=== PATIENT | female | born 1975 | race Caucasian/White ===

== ENCOUNTER 2024-08-25 16:29 | Emergency (ER) | payer OTHER, SELFPAY ==
--- OUTSIDE RECORDS SUMMARY | 2024-08-25 16:36 | XMS_ITS | Referral Summary ---
Author Organization [facility] Address [address] [place] [address] Care Team Providers Care Parquet Floor Layer'S Helper Name Role Phone Kaycee Suresh MD Primary Care Provider Allergies No known active allergies Medications ESTARYLLA 0.25-35 mg-mcg per tablet 09/28/2017 Active fenofibrate (TRIGLIDE) 160 mg tablet TK 1 T PO QD AT DINNER 0 12/07/2017 Active lisinopril (PRINIVIL,ZESTRI L) 10 mg tablet TK 1 T PO QD 3 12/04/2017 Active traZODone (DESYREL) 50 mg tablet TK 1 T PO B BED 0 12/07/2017 Active venlafaxine (EFFEXOR) 100 mg tablet 3 11/29/2017 Active ergocalciferol (VITAMIN D) 50,000 unit capsule TK 1 C PO Q WK 0 10/27/2017 Active buPROPion SR (WELLBUTRIN SR) 150 mg 12 hr tablet Take 1 tablet (150 mg total) by mouth 2 (two) times a day Active Active Problems Problem Noted Date Diagnosed Date Encounter for screening colonoscopy 03/26/2023 Diastasis recti 12/28/2017 Assessment & Plan (12/28/2017 9:35 AM CDT): Asymptomatic. Patient was reassured this is not a hernia. No surgical intervention desired by the patient for this cosmetic problem. Class 1 obesity without seri ous comorbidity with body mass index (BMI) of 33.0 to 33.9 in adult 12/28/2017 Assessment & Plan (12/28/2017 9:36 AM CDT): Obesity is newly identified. Discussed the patient's BMI. The BMI is above average. patient would like referral to communication lecturer. . General weight loss/lifestyle modification strategies discussed (elicit support from others; identify saboteurs; non-food rewards, etc). referral for communication lecturer sent Social History Tobacco Use Types Packs/Day Years Used Date Smoking Tobacco: Never Smokeless Tobacco: Never Alcohol Use Standard Drinks/Week Comments No 0 (1 standard drink = 0.6 oz pur e alcohol) AUDIT-C Answer Date Recorded Q1: How often do you have a drink containing alc ohol? Monthly or less 10/06/2023 Average Number of Drinks Not on file 024 Q3: How often do you have si x or more drinks on one occasion? Less than monthly 10/06/2023 Personal Safety Answer Date Recorded Have you ever been in or are you currently in a harmful physical or emotional relationship or is someone making you feel afraid or unsafe? Denies 10/07/2023 Comments No Sex and Gender Information Value Date Recorded Sex Assigned at Not on file Legal Sex Female 2:35 AM NOISE TESTER Gender Identity Not on file Sexual Orientation Not on file Last Filed Vital Signs Vital Sign Reading Time Taken Comments Blood Pressure 138/75 10/07/2023 10:42 AM CDT Pulse 66 10/07/2023 10:42 AM CDT Temperature 36.7 C (98 F) 10/07/2023 10:42 AM CDT Respiratory Rate 18 10/07/2023 10:42 AM CDT Oxygen Saturation 100% 10/07/2023 10:42 AM CDT Inhaled Oxygen Concentration - - Weight 108.9 kg (240 lb) 10/07/2023 8:51 AM CDT Height 170.2 cm (5' 7) 10/07/2023 8:51 AM CDT Body Mass Index 37.59 10/07/2023 8:51 AM CDT Plan of Treatment Not on file Procedures Procedure Name Priority Date/Time Associated Diagnosis Comments SCREENING MAMMOGRAM BILATERAL W SHAYNE Schedule Routine, Read Routine (OP Routine) 12/31/2023 9:39 AM CDT Encounter for other screening for malignant neoplasm of breast COLONOSCOPY 10/07/2023 8:48 AM CDT from Last 3 Months or Most Recently Relevant to Health Maintenance Results * Screening Mammogram Bilateral W Shayne (12/31/2023 9:39 AM CDT) Anatomical Region Laterality Modality Breast Bilateral Mammography 12/31/2023 11:5 7 AM CDT Impressions 12/31/2023 11:57 AM CDT There is no mammographic evidence of malignancy. The patient may continue screening mammography as per ACR guidelines. FINAL ASSESSMENT: BI-RADS Category 1: Negative. Electronically signed by: Kirsten Fairbanks M.D. Narrative 12/31/2023 11:57 AM CDT EXAMINATION: BILATERAL SCREENING MAMMOGRAM WITH TOMOGRAPHY COMPARISON(S): 12/24/2022 TECHNIQUE: Full-field 2D and digital breast tomosynthesis (DBT) images were obtained. CAD was utilized. BREAST PARENCHYMAL COMPOSITION: The breasts are heterogenously dense, which may obscure small masses. FINDINGS: There are no suspicious masses. No suspicious calcifications are seen. There is no unexplained architectural distortion. There is no skin thickening seen. There are no mammographically abnormal lymph nodes seen in the axillae or elsewhere. us Alden Hillman MD IMG MAMMO PROCEDURES F inal Result * Colonoscopy (10/07/2023 8:48 AM CDT) Anatomical Region Laterality Modality Other Narrative Procedure Note Hernandez Orr MD - 10/07/2023 8:48 AM CDT [facility] Patient Name: Laurie Casiano Procedure Date: 10/07/2023 8:48 AM Date of : 1975 Admit Type: Outpatient Age: 48 Gender: Female Attending MD: Hernandez Orr M.D. Room: [facility] ENDOSCOPY ROOM 1 Note Status: Finalized Patient Profile: This is a 48 year old female. No family history of colon cancer. Screening colonoscopy Procedure: Colonoscopy Indications: Screening for colorectal malignant neoplasm, Thisis the patient's first colonoscopy Referring MD: Kaycee Suresh M.D. Providers: Hernandez Orr M.D. Impression: - One 4 mm polyp in the descending colon, removedwith a jumbo cold forceps. Resected and retrieved. - Internal hemorrhoids. Recommendation: - Await pathology results. - Repeat colonoscopy in 5 years for surveillance. - Continue present medications. Medicines: Monitored Anesthesia Care Complications: No immediate complications. Estimated Blood Loss: Estimated blood loss: none. Procedure: Pre-Anesthesia Assessment: - Prior to the procedure, a History and Physicalwas performed, and patient medications and allergieswere reviewed. The patient's tolerance of previous anesthesia was also reviewed. The risks andbenefits of the procedure and the sedation options and risks were discussed with the patient. All questions were answered, and informed consent was obtained. Prior Anticoagulants: The patient has taken noanticoagulant or antiplatelet agents. ASA Grade Assessment: Per anesthesia note and evaluation. After reviewing the risks and benefits, the patient was deemed in satisfactory condition to undergo the procedure. The benefits, risks and alternatives of theprocedure and sedation were discussed and informed consentwas obtained. All questions were answered. Please referto the signed informed consent document in the medical record. The bowel preparation used was Miralax via split dose instruction. The bowel preparation usedwas bisacodyl tablets via split dose instruction. The scope was passed under direct vision. The Pediatric Colonoscope PCF-H190L [id number] was introducedthrough the anus and advanced to the the cecum, identifiedby appendiceal orifice and ileocecal valve. Thequality of the bowel preparation was good. Bowel prep was administered using a split dose. Findings: The perianal and digital rectal examinations were normal. The cecum appeared normal. The rectum, sigmoid colon, transverse colon and ascending colonappeared normal. A 4 mm polyp was found in the descending colon. The polyp was semi-sessile. The polyp was removed with a jumbo cold forceps.Resection and retrieval were complete. Internal hemorrhoids were found during retroflexion. The hemorrhoids were small. Electronically signed by Hernandez Orr M.D. Hernandez Orr M.D. 10/07/2023 10:15:06 AM Number of Addenda: 0 Note Initiated On: 10/07/2023 8:48 AM Procedure Code(s): --- Professional --- 00621, Colonoscopy, flexible; with biopsy, single or multiple Diagnosis Code(s): --- Professional --- Z12.11, Encounter for screening for malignant neoplasm of colon K64.8, Other hemorrhoids D12.4, Benign neoplasm of descending colon CPT copyright 2020 [employer]. All rights reserved. The codes documented in this report are preliminary and upon scrap shear operator reviewmay be revised to meet current compliance requirements. Recognized by the [place] for promoting quality in endoscopy Hernandez Orr MD ENDOSCOPY PROCEDURES Final Result from Last 3 Months or Most Recently Relevant to Health Maintenance Insurance [facility] MEDICAID [facility] Advance Directives For more information, please contact: [phone] * Full Code (Latest Code Status on File) Date Activated Date Inactivated Comments 10/07/2023 8:47 AM 10/07/2023 3:26 PM * Full Code Date Activated Date Inactivated Comments 10/07/2023 8:47 AM 10/07/2023 8:47 AM Care Teams Parquet Floor Layer'S Helper Relationship Specialty Start Date End Date Kaycee Suresh MD [address] [place] [address] DR WONG [address] [place] [id number] PCP - General Family Medicine 10/06/23
--- OUTSIDE RECORDS SUMMARY | 2024-08-25 16:36 | XMS_ITS | Clinical Summary ---
Author Organization [facility] [employer] Address [address] [place] [address] Care Team Providers Care Commercial Lines Account Executive Name Role Phone Pass, Leeann Adorno NP Primary Care Provider [phone] Source Comments [facility] [employer],non-owned Affiliates and Associated Physician Practices is amultiple site organization consisting of ambulatory clinics and hospital sitesin [place], [place], [place] and [place]. This disclosure is being madepursuant to the Care Everywhere program and may not contain all information available regarding this patient. Last updated 17[employer] Allergies No known active allergies Active Problems Problem Noted Date Diagnosed Date Supervision of other high-risk 013 Overview (01/28/2015): Labs: O+/I/-/-, HIV NR GC/CT: Negative CF screen positive Pap normal, negative HRHPV on 01/03/2013 AMA (advanced maternal age) multigravida 35+ 07/2012 Overview (02/02/2013): S/p Genetics consultation 02/02/13 Decline genetic testing (including QS) Depression complicating , antepartum Overview (01/25/2013): Prozac 20mg Cystic fibrosis carrier, antepartum 01/25/2013 Overview (02/02/2013): FOB negative. S/p Genetic consultation 02/02/13 Family History Medical History Relation Name Comments PR Father Cancer - Breast Maternal Aunt >50yo Cancer - Breast Mother >50yo Diabetes Mother PR Mother Relation Name Status Comments Father Maternal Aunt Mother Social History Tobacco Use Types Packs/Day Years Used Date Smoking Tobacco: Never Alcohol Use Standard Drinks/Week Comments No 0 (1 standard drink = 0.6 oz pur e alcohol) Comments No Sex and Gender Information Value Date Recorded Sex Assigned at Not on file Legal Sex Female 8:30 AM CDT Gender Identity Not on file Sexual Orientation Not on file Last Filed Vital Signs Vital Sign Reading Time Taken Comments Blood Pressure 132/78 02/02/2013 11:00 AM BIOINFORMATICIAN Pulse - - Temperature - - Respiratory Rate - - Oxygen Saturation - - Inhaled Oxygen Concentration - - Weight 95.1 kg (209 lb 9.6 oz) 02/02/2013 11:00 AM BIOINFORMATICIAN Height 170.2 cm (5' 7) 02/02/2013 12:10 PM BIOINFORMATICIAN Body Mass Index 32.83 02/02/2013 11:00 AM BIOINFORMATICIAN Plan of Treatment Health Maintenance Due Date Last Done Comments COLOGUARD (AGES 45-75) - COL ON CA SCREENING 1975 COLON MONITORING 1975 COLONOSCOPY - COLON CA SCREENING 1975 CT COLONOGRAPHY - COLON CA SCREENING 1975 Colorectal Cancer Screening 1975 FIT - COLON CA SCREENING 1975 FLEX SIG - COLON CA SCREENING 1975 LIPID TESTING 1975 MAMMOGRAM 1975 HIV SCREENING 05/22/1990 HEPATITIS C SCREENING 05/18/1993 DTAP/TDAP/TD VACCINES (1 - Tdap) 05/22/1994 HEPATITIS B VACCINE (1 of 3 - 19+ 3-dose series) 05/22/1994 COVID-19 VACCINE ( - 2023-2 5 season) 2023 DEPRESSION SCREENING 03/23/2024 INFLUENZA VACCINE (Season Ended) 2024 ZOSTER VACCINE (1 of 2) 05/22/2025 HIB VACCINE Aged Out No longer eligi ble based on patient's age to complete this topic HPV VACCINE Aged Out No longer eligi ble based on patient's age to complete this topic MENINGOCOCCAL (Group B) VACC INE SHARED DECISION-MAKING Aged Out No longer eligibl e based on patient's age to complete this topic MENINGOCOCCAL GROUPS A/C/Y/W VACCINE Aged Out No longer eligible b ased on patient's age to complete this topic Insurance MEDICAID [facility] Care Teams Commercial Lines Account Executive Relationship Specialty Start Date End Date Leeann Vegas NP [address] [place] [address] [place] [address] PCP - General Nurse Practitioner 02/02/13
--- OUTSIDE RECORDS SUMMARY | 2024-08-25 16:36 | XMS_ITS | Clinical Summary ---
Author Organization [facility] Address [address] [place] [address] Phone Care Team Providers Care Heating And Ventilation Engineer Name Role Phone Don Hayden MD Primary Care Provider [phone] Medications VENLAFAXINE HCL PO Take 150 mg of ampicillin by mouth. Active ESTRADIOL PO Take by mouth. Ac tive Fenofibrate 50 MG Capsule Take by mouth. Acti ve LISINOPRIL PO Take by mouth. A ctive TRAZODONE HCL PO Take by mouth. Activ e Active Problems Problem Noted Date Diagnosed Date Depression with anxiety 10/15/2022 Sleep apnea 10/15/2022 Family History Medical History Relation Name Comments Depression Mother Relation Name Status Comments Mother Social History Tobacco Use Types Packs/Day Years Used Date Smoking Tobacco: Never Smokeless Tobacco: Never Alcohol Use Standard Drinks/Week Comments Not Asked 0 (1 standard drink = 0.6 oz pure alcohol) very seldomly, 3-4 occasions per year PHQ-2 Answer Date Recorded Total Score - Questions 1-9 7 01/21 Sexually Active Control Partners Comments Yes Male Comments Unknown Sex and Gender Information Value Date Recorded Sex Assigned at Not on file Legal Sex Female 10:52 PM CDT Gender Identity Not on file Sexual Orientation Not on file Plan of Treatment Health Maintenance Due Date Last Done Comments Hepatitis C Virus (HCV) Screening 1975 Hepatitis B Immunization (1 of 3 - 19+ 3-dose series) 05/22/1994 Pap Smear 05/22/1996 Cervical Cancer Screening (CCS) 05/22/2005 HPV/Cotest 05/22/2005 Colonoscopy 05/22/2020 Colorectal Cancer Screening 05/22/2020 SARS-COV-2 Immunization ( season) 2023 07/14/2020, 06/19/2020 Mammogram 12/25/2023 12/24/2022, 01/22, 11/17/2017 Influenza Immunization (Season Ended) 2024 04/11/2021, 12/22/2018, 04/06/2018, Additional history exists Respiratory Syncytial Virus (RSV) Immunization (Adult) (1 - 1-dose 75+ series) 05/22/2050 DTaP/Tdap/Td Immunization Discontinued 11/19/2018 TdaP Immunization Completed 11/19/2018 Discussion re Starting/Frequency of Mammograms Completed 12/24/2022, 02/11/2020, 11/17/2017 Human Papillomavirus (HPV) Immunization Aged Out No longer eligible based on patient's age to complete this topic Meningococcal Immunization (ACWY) Aged Out No longer eligible based on patient's age to complete this topic Pneumococcal Immunization Combined Aged Out No longer eligible based on patient's age to complete this topic Rotavirus Immunization Aged Out No lo nger eligible based on patient's age to complete this topic Goals Goal Patient Goal Type Associated Problems Recent Progress Patient-Stated? Author Behavioral Health Behavioral Health On track(2023 10:13 AM REMOTE SENSING SCIENTIST) Yes Nelda Capone, UNIFIED COMMUNICATIONS ENGINEER Note: I need to be able to improve my self-confidence, issues with my teeth and weight Goal/Objective: Increase self-esteem/self-confidence. Anticipated Time Frame for Goal Completion: 6 months Goal Reviewed with: patient Readiness to change: Ready to change Department associated with goal: [facility] Steps to achieve goal: 1. will identify and process contributing factors/barriers to self-confidence. 2. will be able to identify, and report strong belief, in three or more personal strengths, qualities and/or abilities. 3. will identify at least two activities to engage in for the purpose of strengthening self confidence. 4. will engage in at least one activity to strengthen self-confidence 5. Will attend individual and/or group sessions at least 1x/month at least 6 sessions Insurance MEDICAID [facility] Care Teams Heating And Ventilation Engineer Relationship Specialty Start Date End Date Don Hayden MD [address] [place] [address] [place] [address] PCP - General Internal Medicine 10/16/22
--- OUTSIDE RECORDS SUMMARY | 2024-08-25 16:36 | XMS_ITS | Clinical Summary ---
Author Organization [facility] Address [address] [place] [address] Care Team Providers Care Manager Shop Name Role Phone Kaycee Suresh MD Primary [...] above average. patient would like referral to seaport planning manager. . General weight loss/lifestyle modification strategies discussed (elicit support from others; identify saboteurs; non-food rewards, etc). referral for seaport planning manager sent Surgical History Surgery Date Site/Laterality Comments SECTION 03/23/2013 - 03/22/2014 TUBAL LIGATION 03/23/2013 - 03/22/2014 COLONOSCOPY 10/07/2023 Medical History Medical History Date Comments Hypertension Anxiety Family History Medical History Relation Name Comments Cancer Father Lung cancer Father Breast cancer Maternal cousin second Breast cancer Mother dx age 45-50? Cancer Mother dx age 45-50? Diabetes Mother dx age 45-50? Breast cancer Mother's Sister great aunt Ovarian cancer Neg Hx Thyroid cancer Neg Hx Relation Name Status Comments Father Maternal cousin second Mother dx age 45-50? Alive Mother's Sister great aunt Social History Tobacco Use Types Packs/Day Years [...] on file Legal Sex Female 2:35 AM CARPENTER'S HELPER Gender Identity Not on file Sexual Orientation Not on file Obstetrics History Para Term AB IAB SAB Ectopic Multiple Livin g Live Births 3 3 3 Date Outcome GA Total Labor Labor/2nd/3rd Weight Sex Type Anes PTL Viviane A1 A5 Name Clin Term Term Term Last Filed Vital Signs Vital Sign Reading [...] 10/07/2023 8:51 AM CDT Plan of Treatment Health Maintenance Due Date Last Done Comments Cervical Cancer Screening 1975 Depression Screening 1975 Hepatitis C Screening 1975 Hepatitis B Screening 05/22/1993 Regular Well Visit/Exam 18-64 05/22/1993 Influenza Vaccine (Season Ended) 2024 12/22/2018, 04/06/2018, 04/28/2017 Breast Cancer Screening-Mammogram 12/30/2024 12/31/2023, 12/24/2022, 12/24/2022, Additional history exists DTaP/Tdap/Td Vaccine (2 - Td or Tdap) 11/19/2028 11/19/2018 Colon Cancer Screening-Colonoscopy 10/06/2033 10/07/2023 Pneumococcal vaccine <65 Aged Out No longer eligible based on patient's age to complete this topic Procedures Procedure Name Priority Date/Time Associated Diagnosis [...] Orr MD - 10/07/2023 8:48 AM CDT [facility] Patient Name: Laurie Casiano Procedure Date: 10/07/2023 8:48 AM Date of : 1975 Admit Type: Outpatient Age: 48 Gender: Female Attending MD: Hernandez Orr M.D. Room: [facility] ENDOSCOPY ROOM 1 Note Status: Finalized Patient [...] under direct vision. The Pediatric Colonoscope PCF-H190L [id number] was introducedthrough the anus and advanced to [...] 8:48 AM Procedure Code(s): --- Professional --- 43799, Colonoscopy, flexible; with biopsy, single or multiple Diagnosis Code(s): --- Professional --- Z12.11, Encounter for screening for malignant neoplasm of colon K64.8, Other hemorrhoids D12.4, Benign neoplasm of descending colon CPT copyright 2020 [employer]. All rights reserved. The codes documented in this report are preliminary and upon wheel fitter reviewmay be revised to meet current compliance requirements. Recognized by the [employer] for promoting quality in endoscopy Hernandez Orr MD ENDOSCOPY PROCEDURES Final Result from Last 3 Months or Most Recently Relevant to Health Maintenance Insurance [facility] MEDICAID [facility] Advance Directives For more information, please contact: [phone] * Full Code (Latest Code Status on File) Date Activated Date Inactivated Comments 10/07/2023 8:47 AM 10/07/2023 3:26 PM * Full Code Date Activated Date Inactivated Comments 10/07/2023 8:47 AM 10/07/2023 8:47 AM Care Teams Manager Shop Relationship Specialty Start Date End Date Kaycee Suresh MD [address] [place] [address] DR WONG [address] [place] [address] PCP - General Family Medicine 10/06/23
[2024-08-25 16:42] VITALS: BP 125/76; PULSE 77; RESP 16; TEMP 36.4; O2SAT 100
--- NOTE | 2024-08-25 17:54 | ED_ITS ---
HPI - Ear Problem General Chief complaint: Ear Stated complaint: Left Ear Irritation Time Seen by Provider: 08/25/24 17:00 Source: patient and RN notes reviewed Mode of arrival: ambulatory Limitations: no limitations History of Present Illness HPI Narrative: 49-year-old female presents [facility] Care complaining of left ear fullness and tinnitus over the last couple days. Patient denies any pain, fevers, discharge, any upper respiratory symptoms, cough, nausea, vomiting, diarrhea, or any dizziness. Patient says the tinnitus comes and goes. Patient feels like her ear feels full of fluid. Patient denies any significant past medical problems. Patient is not driving [id number]. Related Data Home Medications ?Medication ?Instructions ?Recorded ?Confirmed ?Last Taken ?Type bupropion HCl 150 mg 24 hr tablet, mg PO 08/25/24 Unknown History extended release fenofibrate 160 mg tablet mg 08/25/24 Unknown History lisinopril 20 tablet 08/25/24 Unknown History mg-hydrochlorothiazide 12.5 mg tablet norethindrone 1 mg-ethinyl tablet 08/25/24 Unknown History estradiol 20 mcg (24)-iron 75 mg (4) tablet (Blisovi 24 Fe) trazodone 50 mg tablet mg 08/25/24 Unknown History Allergies Allergy/AdvReac Type Severity Reaction Status Date / Time No Known Allergies Allergy Verified 08/25/24 16:41 Review of Systems Review of Systems: CONSTITUTIONAL: Denies fever, chills, or sweats. EYES: Denies visual changes, redness, or discharge. ENT: Denies rhinorrhea, congestion, sore throat, or otalgia. Positive for ear fullness and tinnitus. CARDIOVASCULAR: Denies chest pain, palpitations, dizziness, lightheadedness, syncope, or edema. RESPIRATORY: Denies cough or dyspnea. GASTROINTESTINAL: Denies abdominal pain, nausea, vomiting, or diarrhea. GENITOURINARY: Denies dysuria or hematuria. SKIN: Denies rash or itching. MUSCULOSKELETAL: Denies back pain, joint pain, or myalgia. NEUROLOGIC: Denies headache, numbness, or weakness. PSYCHIATRIC: Denies anxiety or depression. All other systems reviewed are negative, except as documented in HPI. PMFSH Comments At the time of my signature, I reviewed and agree with the nursing past medical, surgical, social, and family history. There is no relevant family history pertinent to the patient complaint. Exam Narrative: GENERAL: This is a well-nourished, well-developed adult, in no apparent distress. They are non ill-appearing, nontoxic appearing. HEAD: normocephalic, atraumatic. EYES: Sclera clear/white. Conjunctiva normal. Vision is grossly intact. Extraocular movements intact. Pupils PERRLA. No nystagmus EARS: External ears normal, right auditory canals clear and without redness, swelling, drainage, left auditory canal erythematous without drainage, nontender. No tragal tenderness bilaterally. TMs with good cone of light, pearly maldonado, normal without perforation. Effusion behind left TM. Hearing grossly intact. NOSE: External nose normal with no obvious nasal discharge, nasal turbinates without redness, no rhinorrhea. THROAT: Mucous membranes moist, posterior pharynx clear, without erythema or swelling. Uvula midline. Postnasal drip present. NECK: Neck supple, non-tender without lymphadenopathy, masses or thyromegaly. CARDIOVASCULAR: Regular rate and rhythm without murmurs, gallops, or rubs. RESPIRATORY: Clear to auscultation. Breath sounds equal bilaterally. No wheezes, rales, or rhonchi. SKIN: warm, Dry, intact with no suspicious lesions or rash, good texture and turgor. NEURO: awake, alert, and oriented to person, place and time. There were no obvious focal neurologic abnormalities. EXTREMITIES: No joint tenderness, effusion, or edema noted. Course Course Emergency Course: Portions of this record may have been created with voice recognition software Level of Care: Express Care Visit Vital Signs Vital signs: Vital Signs Temperature 97.5 F L 08/25/24 16:42 Pulse Rate 77 08/25/24 16:42 Respiratory Rate 16 08/25/24 16:42 Blood Pressure 125/76 08/25/24 16:42 Pulse Oximetry 100 08/25/24 16:42 Oxygen Delivery Room Air 08/25/24 16:42 Temperature 97.5 F L 08/25/24 16:42 Pulse Rate 77 08/25/24 16:42 Respiratory Rate 16 08/25/24 16:42 Blood Pressure 125/76 08/25/24 16:42 Pulse Oximetry 100 08/25/24 16:42 Oxygen Delivery Room Air 08/25/24 16:42 Reviewed Medical Decision Making MDM Narrative Medical decision making narrative: Possible patient has a left-sided otitis externa and effusion behind left TM. Will treat the floxacillin ear drops. Recommend Flonase and antihistamine sprays for congestion. Discussed physical exam findings. Advised supportive measures and signs/symptoms to go to the ER. Pt is appropriate for outpt treatment and f/u. Differential Diagnosis Differential Diagnosis: Otitis externa, otitis media, ear effusion, allergic rhinitis Vital Signs Vital Signs: Vital Signs Temperature 97.5 F L 08/25/24 16:42 Pulse Rate 77 08/25/24 16:42 Respiratory Rate 16 08/25/24 16:42 Blood Pressure 125/76 08/25/24 16:42 Pulse Oximetry 100 08/25/24 16:42 Oxygen Delivery Room Air 08/25/24 16:42 Temperature 97.5 F L 08/25/24 16:42 Pulse Rate 77 08/25/24 16:42 Respiratory Rate 16 08/25/24 16:42 Blood Pressure 125/76 08/25/24 16:42 Pulse Oximetry 100 08/25/24 16:42 Oxygen Delivery Room Air 08/25/24 16:42 Critical Care Time Critical Care Time Critical Care Time: No Discharge Plan Discharge Clinical Impression: Otitis externa Patient Disposition: Home Condition: Stable Instructions: Antibiotic Form, Ear Infection (ED) Additional Instructions: Take antibiotic drops as directed. Tylenol and ibuprofen every 8 hours as needed to reduce fever, pain Use Flonase and antihistamine spray as needed for congestion. Avoid water or anything into the ear for one week Follow up with your personal physician for further evaluation and treatment within 3-5days. If your symptoms persist, change or worsen significantly, go to the emergency department for further evaluation. Patient Language: Ukrainian Prescriptions: New ofloxacin 0.3 % drops 10 drp LEFT EAR DAILY 7 Days Qty: 10 0RF No Action trazodone 50 mg tablet lisinopril-hydrochlorothiazide 20-12.5 mg tablet bupropion HCl 150 mg tablet extended release 24 hr PO fenofibrate 160 mg tablet Blisovi 24 Fe 1 mg-20 mcg (24)/75 mg (4) tablet Follow-up/Referrals: PHYSICIAN NOT ON STAFF,NONSTAFF [Primary Care Provider] - Time of Disposition: 17:07
== END 2024-08-25 17:10 | disposition home or self-care (01) ==
DX: H60.92 Unspecified otitis externa, left ear (principal); I10 Essential (primary) hypertension; E78.00 Pure hypercholesterolemia, unspecified
CPT/HCPCS: 99203; G0463